=== PATIENT | male | born 1965 | race Two or more races ===

== ENCOUNTER 2021-04-15 21:19 | Emergency (ER) | payer OTHER ==
[~2021-04-15] VITALS: Ht 167.6 cm; Wt 79.8 kg
[2021-04-15 21:24] VITALS: BP 158/90
--- NOTE | 2021-04-15 21:29 | NUR ---
left leg dog bite
[2021-04-15] MEDS ORDERED: AMOX-430 PO (21:35)
[2021-04-15] MEDS ORDERED: AMOX/CLAVULANATE 875 MG TABLET ONE (21:43)
[2021-04-15] MEDS ORDERED: AMOX/CLAVULANATE 875 MG TABLET PO ONE (22:00)
--- NOTE | 2021-04-15 22:10 | NUR ---
Patient discharged to home in stable condition. Written and verbal after care instructions given. Patient verbalizes understanding of instruction. Wound care provided. Pt ambulatory with a steady gait
== END 2021-04-15 22:11 | disposition home or self-care (01) ==
LOC: ER 21:21
DX: S81.851A Open bite, right lower leg, initial encounter (principal); I10 Essential (primary) hypertension; M10.9 Gout, unspecified; W54.0XXA Bitten by dog, initial encounter; Y93.89 Activity, other specified; Y92.89 Other specified places as the place of occurrence of the external cause; Y99.8 Other external cause status